=== PATIENT | male | born 1990 | race Asian ===

== ENCOUNTER 2023-12-03 21:13 | Emergency (ER) | payer SELFPAY ==
[2023-12-03 21:16] VITALS: BP 142/97
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
[2023-12-04] MEDS: MOTRIN 600 MG PO (00:14)
== END 2023-12-04 00:32 | disposition home or self-care (01) ==
LOC: EMR 21:13
PROVIDERS: EMERGENCY PHYSICIAN Student in an Organized Health Care Education/Training Program
DX: S52.614A Nondisplaced fracture of right ulna styloid process, initial encounter for closed fracture (principal); V49.40XA Driver injured in collision with unspecified motor vehicles in traffic accident, initial encounter; R03.0 Elevated blood-pressure reading, without diagnosis of hypertension
CPT/HCPCS: 99284; 71046; 73110; 93005